=== PATIENT | female | born 1950 | race Two or more races ===

== ENCOUNTER 2019-11-19 12:18 | Inpatient (IN) | payer MEDICARE, OTHER ==
[~2019-11-19] VITALS: Ht 149.9 cm; Wt 64.0 kg
[2019-11-19] MEDS ORDERED: IV NORMAL SALINE 1000 ML BAG IV ONE ×2 (12:30→13:45)
[2019-11-19] MEDS ORDERED: IPRA12.9 INH (12:32)
[2019-11-19] MEDS ORDERED: FLUT1DIS27 INH (12:32)
[2019-11-19] MEDS ORDERED: IBUP-1953 PO (12:32)
[2019-11-19] MEDS ORDERED: MAGN400O6 PO (12:32)
[2019-11-19] MEDS ORDERED: ALBU2.5V13 NEB (12:32)
[2019-11-19] MEDS ORDERED: LEVO75TA7 PO (12:32)
[2019-11-19] MEDS ORDERED: IPRATROPIUM BROMIDE 0.5 MG/2.5 ML NEBU ONE ×2 (12:43→14:26)
[2019-11-19] MEDS ORDERED: ALBUTEROL SULFATE 2.5 MG/3 ML NEBU ONE ×2 (12:43→14:26)
[2019-11-19] MEDS ORDERED: ALBUTEROL SULFATE 2.5 MG/3 ML NEBU NEB ONE (12:45)
[2019-11-19] MEDS ORDERED: IPRATROPIUM BROMIDE 0.5 MG/2.5 ML NEBU NEB ONE (12:45)
[2019-11-19 12:54] LABS: BASOPHILS # (AUTO) 0.1 K/uL (0.0-8.0); BASOPHILS % (AUTO) 0.8 % (0.0-2.0); EOSINOPHILS % (AUTO) 12.5 % (0.0-7.0); HEMATOCRIT 40.3 % (31.2-41.9); HEMOGLOBIN 13.1 g/dL (10.9-14.3); LYMPHOCYTES # (AUTO) 2.1 K/uL (20.0-40.0); LYMPHOCYTES % (AUTO) 24.8 % (20.5-51.5); MEAN CORPUSCULAR HEMOGLOBIN 31.2 uug (24.7-32.8); MEAN CORPUSCULAR HGB CONC 33 g/dL (32.3-35.6); MEAN CORPUSCULAR VOLUME 96.2 fL (75.5-95.3); MONOCYTES # (AUTO) 0.4 K/uL (2.0-10.0); MONOCYTES % (AUTO) 5.4 % (0.0-11.0); NEUTROPHILS # (AUTO) 4.7 K/uL (1.8-8.9); NEUTROPHILS % (AUTO) 56.5 % (38.5-71.5); PLATELET COUNT (AUTO) 312 K/uL (179-408); RED BLOOD CELL COUNT(AUTO) 4.19 MIL/uL (3.63-4.92); WHITE BLOOD COUNT (AUTO) 8.3 K/uL (3.8-11.8)
[2019-11-19 12:56] LABS: CREATININE 0.9 mg/dL (0.6-1.3)
[2019-11-19 13:08] LABS: BILIRUBIN,DIRECT 0.1 mg/dL (0.0-0.2); BILIRUBIN,TOTAL 0.3 mg/dL (0.2-1.0); TOTAL PROTEIN, SERUM 7.7 g/dL (6.4-8.2)
--- NOTE | 2019-11-19 13:26 | NUR ---
Patient ambulated to bathroom with slow steady gait, pending admission, c/o feelings of anxiety intermittently, speaks full sentences comfortably, c/o chronic back pains, MD is aware.
[2019-11-19 13:53] LABS: *BILIRUBIN,URIN NEGATIVE (NEGATIVE); *BLOOD, URINE 1+ (NEGATIVE); *CLARITY,URINE CLEAR (CLEAR); *COLOR,URINE YELLOW (YELLOW); *KETONES,URINE NEGATIVE (NEGATIVE); *UROBILINOGEN,URINE 0.2 E.U./dl (NORMAL); LEUKOCYTE ESTERASE ,URINE 1+ (NEGATIVE); NITRITE, URINE NEGATIVE (NEGATIVE); UGLUCOSE NEGATIVE (NEGATIVE)
[2019-11-19] MEDS ORDERED: ONDANSETRON 4 MG/2 ML VIAL ONE (13:58)
[2019-11-19] MEDS ORDERED: MORPHINE SULFATE 2 MG/1 ML DISP.SYRIN ONE (13:58)
[2019-11-19 13:59] LABS: BACTERIA,URINE FEW /HPF (NONE SEEN); RBC,URINE 0-3 /HPF (0-3); SQUAMOUS EPITHELIAL CELL,UR FEW /HPF (NONE SEEN); WBC,URINE 0-3 /HPF (0-3)
[2019-11-19] MEDS ORDERED: ONDANSETRON 4 MG/2 ML VIAL IV ONE (14:00)
[2019-11-19] MEDS ORDERED: MORPHINE SULFATE 2 MG/1 ML DISP.SYRIN IV ONE (14:00)
[2019-11-19] MEDS ORDERED: PIPERACILLIN/TAZOBACTAM/D5W 50 ML IV ONE (14:14)
[2019-11-19] MEDS ORDERED: methylPREDNISolone SOD SUCC 125 MG/2 ML VIAL IV ONE (14:15)
[2019-11-19] MEDS ORDERED: PIPERACILLIN SODIUM/TAZOBACTAM 3.375 G in IV DEXTROSE 5% 50 ML IV ONE (14:15)
[2019-11-19] MEDS ORDERED: AZITHROMYCIN IV 500 MG in IV DEXTROSE 5% 250 ML IV ONE (14:15)
[2019-11-19] MEDS ORDERED: methylPREDNISolone SOD SUCC 125 MG/2 ML VIAL ONE (14:18)
[2019-11-19 14:23] LABS: ABG BASE EXCESS -2.4 mmol/L; ABG HCO3 22.7 mmol/L; ABG PCO2 39.9 mmHg (35.0-45.0); ABG PH 7.372 (7.350-7.450); ABG PO2 55.8 mmHg (75.0-100.0); ABG SITE RIGHT RADIAL; ABG TOTAL HEMOGLOBIN 12.5 G/dL (12.0-16.0); COHb 0.9 % (0.5-1.5); MetHb 0.1 % (0.0-1.5); O2Hb 87.5 % (94.0-97.0); VENT MODE Room Air
--- NOTE | 2019-11-19 14:23 | NUR ---
ADRIANE Bocanegra is here & evaluating the patient.
[2019-11-19] MEDS: IPRATROPIUM BROMIDE 0.5 MG/2.5 ML NEBU NEB SCH ×3 (14:27→22:31)
[2019-11-19] MEDS: ALBUTEROL SULFATE 2.5 MG/3 ML NEBU NEB SCH ×3 (14:27→22:31)
--- NOTE | 2019-11-19 14:34 | NUR ---
Clinical Pharmacy Note: Vancomycin Dosing per Pharmacy Subjective: Vancomycin IV to start on this 69 yo female patient for suspected infection (waiting for MD notes) Objective: BUN 16/Scr 0.9 WBC 8.3 Temperature 98.9 ht 155 cm wt 61.6 kg Assessment/Plan: Will start vancomycin 1000mg IVPB Q26hr for a predicted vancomycin steady state trough level of 15.8 mcg/ml. Will draw a vancomycin trough level prior to the 4th dose of vancomycin (not ordered yet). Will monitor renal function and adjust vancomycin dose, if needed, should renal function change significantly. Will follow daily.
[2019-11-19] MEDS ORDERED: AZITHROMYCIN 500MG/ D5W 250ML IVPB **ER PYXIS ONLY IV ONE (14:38)
[2019-11-19] MEDS ORDERED: MAGNESIUM HYDROXIDE 30 ML LIQUID UDC PO PRN (14:45)
[2019-11-19] MEDS ORDERED: ACETAMINOPHEN 325 MG TABLET PO PRN (14:45)
[2019-11-19] MEDS ORDERED: ONDANSETRON 4 MG/2 ML VIAL IV PRN (14:45)
[2019-11-19] MEDS ORDERED: Z GUARD REMEDY PASTE 57 GM TUBE TOP PRN (14:45)
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
--- NOTE | 2019-11-19 14:55 | NUR ---
Voided 2 more times while in ER. MAIL ROOM Sahra wants patient admitted to CCU instead of 3rd floor. CCU1 given with IV Zithromax infusing, endorsed to CCU nurse
[2019-11-19] MEDS ORDERED: LORAZEPAM 0.5 MG TABLET PO PRN (15:00)
[2019-11-19 15:06] VITALS: BP 98/62
[2019-11-19] MEDS ORDERED: LORAZEPAM 1 MG TABLET PO PRN (15:30)
[2019-11-19] MEDS: GUAIFENESIN LA 600 MG TABLET.SA PO SCH (15:31)
--- NOTE | 2019-11-19 15:45 | NUR ---
awake. alert. watching t.v. med. with tylenol , ativan, and mucinex for cough. pt. able to swallow water easily without coughing.
[2019-11-19] MEDS ORDERED: VANCOMYCIN IV 1,000 MG in IV DEXTROSE 5% 250 ML IV SCH (16:00)
[2019-11-19 17:00] VITALS: BP 123/76
--- NOTE | 2019-11-19 17:19 | NUR ---
pt. eating supper. denies pain or dyspnea.
--- NOTE | 2019-11-19 17:30 | NUR ---
incontinent of urine. pads changed.
[2019-11-19] MEDS: IV NS 1000 ML 1,000 ML IV PRN (19:00)
[2019-11-19 19:01] VITALS: BP 146/87
[2019-11-19] MEDS: HYDROCODONE/APAP 5-325MG TABLET PO PRN ×2 (19:07→22:56)
[2019-11-19 20:00] VITALS: BP 115/80
[2019-11-19] MEDS: PIPERACILLIN SODIUM/TAZOBACTAM 3.375 G in IV DEXTROSE 5% 50 ML IV SCH (20:15)
[2019-11-19] MEDS: CLONAZEPAM 1 MG TABLET PO PRN (20:17)
[2019-11-19] MEDS: GUAIFENESIN/CODEINE 5 ML LIQUID UDC PO PRN (20:41)
[2019-11-19 22:00] VITALS: BP 113/64
[2019-11-19] MEDS: methylPREDNISolone SOD SUCC 40 MG/ML VIAL IV SCH (22:39)
[2019-11-20] VITALS (12 sets, daily range): BP systolic 106–144; BP diastolic 58–84
[2019-11-20] MEDS: PIPERACILLIN SODIUM/TAZOBACTAM 3.375 G in IV DEXTROSE 5% 50 ML IV SCH ×2 (02:21→08:23)
[2019-11-20] MEDS: GUAIFENESIN/CODEINE 5 ML LIQUID UDC PO PRN ×4 (02:30→19:34)
[2019-11-20] MEDS: HYDROCODONE/APAP 5-325MG TABLET PO PRN ×5 (03:05→21:28)
[2019-11-20] MEDS: IV NS 1000 ML 1,000 ML IV PRN ×2 (04:38→21:29)
[2019-11-20 05:19] LABS: BASOPHILS % (AUTO) 0.1 % (0.0-2.0); HEMATOCRIT 36.3 % (31.2-41.9); HEMOGLOBIN 11.9 g/dL (10.9-14.3); LYMPHOCYTES # (AUTO) 0.7 K/uL (20.0-40.0); LYMPHOCYTES % (AUTO) 9.2 % (20.5-51.5); MEAN CORPUSCULAR HEMOGLOBIN 31.2 uug (24.7-32.8); MEAN CORPUSCULAR HGB CONC 33 g/dL (32.3-35.6); MEAN CORPUSCULAR VOLUME 94.9 fL (75.5-95.3); MONOCYTES # (AUTO) 0.1 K/uL (2.0-10.0); MONOCYTES % (AUTO) 0.7 % (0.0-11.0); NEUTROPHILS # (AUTO) 6.9 K/uL (1.8-8.9); PLATELET COUNT (AUTO) 280 K/uL (179-408); RED BLOOD CELL COUNT(AUTO) 3.82 MIL/uL (3.63-4.92); WHITE BLOOD COUNT (AUTO) 7.7 K/uL (3.8-11.8)
[2019-11-20 05:24] LABS: CREATININE 0.9 mg/dL (0.6-1.3); MAGNESIUM 1.9 mg/dL (1.8-2.4); PHOSPHOROUS 3.8 mg/dL (2.5-4.9); POTASSIUM 4.4 mmol/L (3.5-5.1)
[2019-11-20] MEDS: ALBUTEROL SULFATE 2.5 MG/3 ML NEBU NEB SCH ×6 (05:32→22:30)
[2019-11-20] MEDS: IPRATROPIUM BROMIDE 0.5 MG/2.5 ML NEBU NEB SCH ×6 (05:32→22:30)
[2019-11-20] MEDS: methylPREDNISolone SOD SUCC 40 MG/ML VIAL IV SCH ×2 (06:15→21:28)
[2019-11-20] MEDS: LEVOTHYROXINE SODIUM 75 MCG TABLET PO SCH (06:15)
--- NOTE | 2019-11-20 08:02 | NUR ---
Clinical Pharmacy Note: Vancomycin Dosing per Pharmacy Subjective: Vancomycin IV to continue on this 69 yo female patient for suspected infection (per ER MD note for [facility]) Objective: BUN 12/Scr 0.9 WBC 7.7 Temperature 97.7 ht 155 cm wt 61.6 kg Assessment/Plan: Will continue same dose of vancomycin 1000mg IVPB Q26hr for a predicted vancomycin steady state trough level of 15.8 mcg/ml. 2nd dose today at 1800. Will draw a vancomycin trough level prior to the 4th dose of vancomycin (not ordered yet). Will monitor renal function and adjust vancomycin dose, if needed, should renal function change significantly. Will follow daily.
[2019-11-20] MEDS: CLONAZEPAM 1 MG TABLET PO PRN ×2 (08:22→19:34)
[2019-11-20] MEDS: GUAIFENESIN LA 600 MG TABLET.SA PO SCH ×2 (08:22→21:28)
--- NOTE | 2019-11-20 13:30 | NUR ---
Attending physician NYareliP. in the unit to examine patient, full report give orders to down grade pt. to Med-surge received and implemented.
[2019-11-20] MEDS ORDERED: LEVOFLOXACIN 500 MG TABLET PO ONE (14:00)
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
--- NOTE | 2019-11-20 15:08 | NUR ---
Telephone report given Ileana Guaman patient will be going to room 310. Patient will be going via wheel-chair.
--- NOTE | 2019-11-20 16:00 | NUR ---
PT is in no acute distress. Pt ambulatory. IV reinforced with tape. SNR on tele no ectopy. Call light is within reach.
--- NOTE | 2019-11-20 17:30 | NUR ---
PT refused to have IVF restarted. "please start iv later. I wanna move around."
[2019-11-20] MEDS ORDERED: OSMOLITE 1.2 CAL 1,000 ML LIQUID GT PRN (18:00)
--- NOTE | 2019-11-20 20:00 | NUR ---
Patient received awake, alert and fully oriented. Noted with coughing, patient also slightly anxious r/t coughing. RT notified, patient with routine breathing tx. also given PRN cough medication and Klonopin, awaiting effectiveness. No complaints of pain at this time. Fall and safety precautions reinforced. On O2 2LPM via NC. Relaxation techniques reinforced. Will continue to monitor and manage symptoms as needed.
--- NOTE | 2019-11-20 22:00 | NUR ---
Pt is now resting comfortably. [place] 5 x 1 given at around 2130 for 10/10 complaints of pain. No more coughing noted and no more signs of anxiety. Will continue to monitor.
[2019-11-21] MEDS: HYDROCODONE/APAP 5-325MG TABLET PO PRN ×4 (02:03→20:17)
[2019-11-21] MEDS: ALBUTEROL SULFATE 2.5 MG/3 ML NEBU NEB SCH ×6 (03:30→23:55)
[2019-11-21] MEDS: IPRATROPIUM BROMIDE 0.5 MG/2.5 ML NEBU NEB SCH ×6 (03:30→23:55)
--- NOTE | 2019-11-21 05:46 | NUR ---
Patient is resting at this time, another 1x dose of [place] given around 1am. Able to sleep without coughing and any respiratory distress. Proper skin care provided. All needs attended, will continue to monitor and endorse accordingly.
[2019-11-21] MEDS: CLONAZEPAM 1 MG TABLET PO PRN ×2 (05:51→18:57)
[2019-11-21] MEDS: LEVOTHYROXINE SODIUM 75 MCG TABLET PO SCH (05:54)
[2019-11-21 06:40] LABS: BASOPHILS % (AUTO) 0.1 % (0.0-2.0); HEMATOCRIT 36.5 % (31.2-41.9); HEMOGLOBIN 11.7 g/dL (10.9-14.3); LYMPHOCYTES % (AUTO) 6.9 % (20.5-51.5); MEAN CORPUSCULAR HEMOGLOBIN 30.9 uug (24.7-32.8); MEAN CORPUSCULAR HGB CONC 32 g/dL (32.3-35.6); MEAN CORPUSCULAR VOLUME 96.7 fL (75.5-95.3); MONOCYTES # (AUTO) 0.4 K/uL (2.0-10.0); MONOCYTES % (AUTO) 2.5 % (0.0-11.0); NEUTROPHILS # (AUTO) 13.6 K/uL (1.8-8.9); NEUTROPHILS % (AUTO) 90.5 % (38.5-71.5); PLATELET COUNT (AUTO) 259 K/uL (179-408); RED BLOOD CELL COUNT(AUTO) 3.78 MIL/uL (3.63-4.92)
[2019-11-21 07:10] LABS: CREATININE 0.8 mg/dL (0.6-1.3); MAGNESIUM 2.1 mg/dL (1.8-2.4); PHOSPHOROUS 3.5 mg/dL (2.5-4.9); POTASSIUM 4.4 mmol/L (3.5-5.1)
--- NOTE | 2019-11-21 08:00 | NUR ---
Pt. resting in bed alert oriented x4. Pt. denies SOB/ difficulty breathing. Pt. denies pain at this time. IV in L hand 20 gauge intact patent running prescribed fluids. Safety measures in place. call light within reach. will continue to monitor pt.
[2019-11-21] MEDS: GUAIFENESIN/CODEINE 5 ML LIQUID UDC PO PRN ×3 (08:15→20:50)
[2019-11-21] MEDS: GUAIFENESIN LA 600 MG TABLET.SA PO SCH ×2 (08:15→20:17)
[2019-11-21] MEDS: IV NS 1000 ML 1,000 ML IV PRN (08:15)
[2019-11-21] MEDS: methylPREDNISolone SOD SUCC 40 MG/ML VIAL IV SCH ×2 (08:15→20:16)
[2019-11-21 11:00] VITALS: BP 132/71
[2019-11-21] MEDS ORDERED: ALBUTEROL SULFATE 1.25 MG/3 ML NEBU NEB PRN (11:15)
[2019-11-21] MEDS ORDERED: IPRATROPIUM BROMIDE 0.5 MG/2.5 ML NEBU NEB PRN (11:15)
[2019-11-21] MEDS: LEVOFLOXACIN 250 MG TABLET PO SCH (15:33)
--- NOTE | 2019-11-21 15:56 | NUR ---
Provided pt. with AM Robitussin, and milk of magnesia. Provided pt. with Robitussin again for cough and norco for generalized pain. pt. has not had BM after MOM will provide pt. with prune juice to see if that will help. Safety measures in place. call light within reach. will continue to monitor pt.
[2019-11-21 16:00] VITALS: BP 128/72
--- NOTE | 2019-11-21 16:59 | NUR ---
Diet armida notified to collect pt food preferences. Addendum: 11/21/19 at [address] Amended: Links added.
--- NOTE | 2019-11-21 20:00 | NUR ---
AWAKE ,ALERT.COMPLAINING OF GENERALIZED PAIN,NORCO I TAB PO GIVEN/COUGHING CONTINUOUSLY MUCINEX PLUS ROBITUSSIN GIVE.RESPIRATORY THERAPY GAVE TX. PT ASLEEP FOR 4 HOURS. O2 AT 2 LITERS,RESTING COMFORTABLY.
[2019-11-21 20:44] VITALS: BP 124/73
--- NOTE | 2019-11-22 00:30 | NUR ---
NORCO GIVEN REQUESTED FOR GENERALIZED PAIN,REFUSED RESPIRATORY TX.ROBITUSSIN GIVEN.SLEPT FOR 4 HOURS.
[2019-11-22] MEDS: GUAIFENESIN/CODEINE 5 ML LIQUID UDC PO PRN ×2 (00:43→20:20)
[2019-11-22] MEDS: HYDROCODONE/APAP 5-325MG TABLET PO PRN ×5 (00:43→18:28)
[2019-11-22] MEDS: ALBUTEROL SULFATE 2.5 MG/3 ML NEBU NEB SCH ×6 (05:07→23:19)
[2019-11-22] MEDS: IPRATROPIUM BROMIDE 0.5 MG/2.5 ML NEBU NEB SCH ×6 (05:07→23:19)
--- NOTE | 2019-11-22 06:05 | NUR ---
MEDICATED AGAIN FOR GENERALIZED PAIN, NORCO 1 TAB GIVEN WITH ROBITUSSIN, VERY HAPPY NOT COUHING CONTINOUSLY.BREATHING TX GIVEN.
[2019-11-22 06:24] VITALS: BP 127/64
[2019-11-22 06:45] LABS: HEMOGLOBIN 12.2 g/dL (10.9-14.3); LYMPHOCYTES # (AUTO) 1.7 K/uL (20.0-40.0); LYMPHOCYTES % (AUTO) 16.5 % (20.5-51.5); MEAN CORPUSCULAR HEMOGLOBIN 30.9 uug (24.7-32.8); MEAN CORPUSCULAR HGB CONC 32 g/dL (32.3-35.6); MEAN CORPUSCULAR VOLUME 96.2 fL (75.5-95.3); MONOCYTES # (AUTO) 0.3 K/uL (2.0-10.0); MONOCYTES % (AUTO) 3.3 % (0.0-11.0); NEUTROPHILS # (AUTO) 8.2 K/uL (1.8-8.9); NEUTROPHILS % (AUTO) 80.2 % (38.5-71.5); PLATELET COUNT (AUTO) 262 K/uL (179-408); RED BLOOD CELL COUNT(AUTO) 3.95 MIL/uL (3.63-4.92); WHITE BLOOD COUNT (AUTO) 10.2 K/uL (3.8-11.8)
[2019-11-22] MEDS: LEVOTHYROXINE SODIUM 75 MCG TABLET PO SCH (07:04)
[2019-11-22 07:11] LABS: CREATININE 0.8 mg/dL (0.6-1.3); MAGNESIUM 2.2 mg/dL (1.8-2.4); PHOSPHOROUS 3.3 mg/dL (2.5-4.9); POTASSIUM 4.1 mmol/L (3.5-5.1)
--- NOTE | 2019-11-22 07:30 | NUR ---
Patient calm and comfortable with no signs of distress and stable vital signs; patient will continue to be monitored.
[2019-11-22] MEDS: methylPREDNISolone SOD SUCC 40 MG/ML VIAL IV SCH ×2 (08:57→20:13)
[2019-11-22] MEDS: CLONAZEPAM 1 MG TABLET PO PRN ×2 (08:57→20:13)
[2019-11-22] MEDS: GUAIFENESIN LA 600 MG TABLET.SA PO SCH ×2 (08:57→20:13)
--- NOTE | 2019-11-22 10:00 | NUR ---
dr wisdom saw pt, ordered effector. given
[2019-11-22 11:35] VITALS: BP 129/70
[2019-11-22] MEDS: LEVOFLOXACIN 250 MG TABLET PO SCH (14:11)
[2019-11-22 16:00] VITALS: BP 132/81
--- NOTE | 2019-11-22 19:20 | NUR ---
Patient medication compliant; patient educated that if she feels weak to use call light for assistance ; patient verbalized understanding. patient with stable vital signs through out shift. Patient given Prn pain and anxiety medication through out shift. Report given to on coming nurse.
--- NOTE | 2019-11-22 20:00 | NUR ---
ALERT,WAITING FOR KLONOPIN FOR HER ANXIETY,NORCO I TAB GIVEN FOR GENERALIZED PAIN, HHN GIVEN BY RESPIRATORY THERAPY,COUGHING CONTINUOSLY, ROBITUSSIN 5 CC GIVEN.
[2019-11-22 20:43] VITALS: BP 104/83
[2019-11-22] MEDS ORDERED: VENLAFAXINE XR 37.5 MG CAP.SR.24H PO SCH (21:30)
[2019-11-22] MEDS: VENLAFAXINE XR 37.5 MG CAP.SR.24H PO SCH (22:00)
[2019-11-22] MEDS ORDERED: VENLAFAXINE XR 37.5 MG CAP.SR.24H ONE (22:31)
[2019-11-23] MEDS: HYDROCODONE/APAP 5-325MG TABLET PO PRN ×3 (03:44→12:06)
[2019-11-23] MEDS: ALBUTEROL SULFATE 2.5 MG/3 ML NEBU NEB SCH ×4 (03:52→15:32)
[2019-11-23] MEDS: IPRATROPIUM BROMIDE 0.5 MG/2.5 ML NEBU NEB SCH ×4 (03:52→15:32)
[2019-11-23 05:19] VITALS: BP 122/70
[2019-11-23] MEDS: LEVOTHYROXINE SODIUM 75 MCG TABLET PO SCH (06:12)
[2019-11-23 06:19] LABS: HEMATOCRIT 36.3 % (31.2-41.9); LYMPHOCYTES # (AUTO) 1.4 K/uL (20.0-40.0); LYMPHOCYTES % (AUTO) 14.2 % (20.5-51.5); MEAN CORPUSCULAR HEMOGLOBIN 31.1 uug (24.7-32.8); MEAN CORPUSCULAR HGB CONC 33 g/dL (32.3-35.6); MONOCYTES # (AUTO) 0.5 K/uL (2.0-10.0); MONOCYTES % (AUTO) 4.8 % (0.0-11.0); PLATELET COUNT (AUTO) 267 K/uL (179-408); RED BLOOD CELL COUNT(AUTO) 3.86 MIL/uL (3.63-4.92); WHITE BLOOD COUNT (AUTO) 9.9 K/uL (3.8-11.8)
[2019-11-23 06:40] LABS: CREATININE 0.7 mg/dL (0.6-1.3); MAGNESIUM 2.2 mg/dL (1.8-2.4)
--- NOTE | 2019-11-23 07:30 | NUR ---
Patient calm and comfortable resting in bed with no signs of distress; patient will continue to be monitored.
[2019-11-23] MEDS: GUAIFENESIN LA 600 MG TABLET.SA PO SCH (08:42)
[2019-11-23] MEDS: VENLAFAXINE XR 37.5 MG CAP.SR.24H PO SCH (08:42)
[2019-11-23] MEDS: methylPREDNISolone SOD SUCC 40 MG/ML VIAL IV SCH (08:43)
[2019-11-23] MEDS ORDERED: MORPHINE SULFATE 4 MG/1 ML DISP.SYRIN ONE (09:42)
[2019-11-23] MEDS ORDERED: ONDANSETRON 4 MG/2 ML VIAL ONE (09:43)
[2019-11-23] MEDS: CLONAZEPAM 1 MG TABLET PO PRN (10:09)
[2019-11-23 11:06] VITALS: BP 129/78
[2019-11-23] MEDS ORDERED: LEVOFLOXACIN 500 MG TABLET PO SCH (14:00)
--- NOTE | 2019-11-23 14:50 | NUR ---
Patient discharged to ARU for rehabilitation services with stable vital signs; patient with no signs of distress; patient medication compliant ; patient educated on ARU transfer ; patient verbalized understanding; patient given discharge instructions; report given to aru nurse. Patient left in stable condition.
[2019-11-23] MEDS ORDERED: VENL37.55 PO (16:23)
[2019-11-23] MEDS ORDERED: CLON1TAB PO (16:23)
== END 2019-11-23 14:50 | DRG 189 ==
LOC: ER 12:20 → CCU 14:40 → MEDSURG3 11-20 15:51
PROVIDERS: ADMIT Nurse Practitioner Acute Care; ATTEND Nurse Practitioner Acute Care
DX: J96.01 Acute respiratory failure with hypoxia (principal); J45.901 Unspecified asthma with (acute) exacerbation; J20.9 Acute bronchitis, unspecified; E03.9 Hypothyroidism, unspecified; Z91.5 Personal history of self-harm; G89.29 Other chronic pain; M54.9 Dorsalgia, unspecified; F32.9 Major depressive disorder, single episode, unspecified; Z79.890 Hormone replacement therapy; F41.1 Generalized anxiety disorder
CPT/HCPCS: 36415; 36600; 70030-TC; 71045; 83605; 83735; 84100; 85025; 87040; 87070; 87086; 87400; 93005; 94640; A4663; G0378; J0456; J2270; J2405; J2543; J2920; J2930; J3370; J3590; J7030; J7060

== ENCOUNTER 2019-11-23 15:37 | Inpatient (IN) | payer MEDICARE, OTHER ==
[~2019-11-23] VITALS: Ht 149.9 cm; Wt 64.0 kg
[~2019-11-23 15:37] MED LIST: ALBU2.5V13 NEB; FLUT1DIS27 INH; IBUP-1953 PO; IPRA12.9 INH; LEVO75TA7 PO; MAGN400O6 PO
[2019-11-23] MEDS ORDERED: CLON1TAB PO (16:23)
[2019-11-23] MEDS ORDERED: VENL37.55 PO (16:23)
[2019-11-23 16:33] VITALS: BP 142/76
[2019-11-23] MEDS: HYDROCODONE/APAP 10-325 MG TABLET PO PRN ×2 (16:41→20:49)
[2019-11-23] MEDS ORDERED: ALBUTEROL SULFATE 2.5 MG/ 0.5 ML NEBU NEB PRN (17:00)
[2019-11-23] MEDS ORDERED: IPRATROPIUM BROMIDE 0.5 MG/2.5 ML NEBU NEB PRN (17:00)
[2019-11-23] MEDS ORDERED: GUAIFENESIN/CODEINE 5 ML LIQUID UDC PO PRN (17:00)
[2019-11-23] MEDS: VENLAFAXINE XR 37.5 MG CAP.SR.24H PO SCH (17:53)
--- NOTE | 2019-11-23 18:28 | NUR ---
Admitted a 69 year old female patient from [facility] at 14:45pm. patient is AAO x 4, able to express need. Patient on O2 at 2LPM via NC O2 saturation of 95%. In NO acute distress. Patient also on routine breathing treatment. Patient noted with dry cough at times. Vital signs taken and stable for patient. Afebrile. Dr. Mora made aware of patient admission. Jennifer Bocanegra GUARD IMMIGRATION verified medications. Patient on [place] 10/325mg PO 1 tab Q 4hrs prn for Generalized pain and effective. Due medication administered as ordered. Inventory done during shift. Patient ambulatory with a walker and one person assist. Needs attended, safety measures in place, call light left at bed side, endorsed to next shift and will continue with care.
[2019-11-23] MEDS: GUAIFENESIN LA 600 MG TABLET.SA PO SCH (20:08)
[2019-11-23] MEDS: methylPREDNISolone SOD SUCC 40 MG/ML VIAL IV SCH (20:09)
[2019-11-23] MEDS: CLONAZEPAM 1 MG TABLET PO PRN (20:09)
--- NOTE | 2019-11-23 21:46 | NUR ---
Received pt resting in bed. AAO x4. On 2L O2 via NC, tolerating well. No acute distress noted. C/o 8/10 pain on the back, PRN pain med given. Due meds given as ordered. Pt received breathing treatment. Noted to have non- productive cough. Pt denies suicidal thoughts. Environmental room safety check and q15 minutes check implemented. Safety measures maintained. Call light and personal items within reach. Will continue to monitor.
[2019-11-23 22:20] VITALS: BP 139/71
[2019-11-23] MEDS: IPRATROPIUM BROMIDE 0.5 MG/2.5 ML NEBU NEB SCH ×2 (22:37→23:30)
[2019-11-23] MEDS: ALBUTEROL SULFATE 2.5 MG/ 0.5 ML NEBU NEB SCH ×2 (22:38→23:30)
[2019-11-24] MEDS: HYDROCODONE/APAP 10-325 MG TABLET PO PRN ×4 (00:49→20:22)
[2019-11-24] MEDS: ALBUTEROL SULFATE 2.5 MG/ 0.5 ML NEBU NEB SCH ×6 (03:30→22:53)
[2019-11-24] MEDS: IPRATROPIUM BROMIDE 0.5 MG/2.5 ML NEBU NEB SCH ×6 (03:30→22:53)
[2019-11-24 04:20] VITALS: BP 130/81
[2019-11-24] MEDS: LEVOTHYROXINE SODIUM 75 MCG TABLET PO SCH (06:08)
[2019-11-24 08:00] VITALS: BP 146/86
[2019-11-24] MEDS: ASPIRIN 81 MG TAB.CHEW PO SCH (08:39)
[2019-11-24] MEDS: GUAIFENESIN LA 600 MG TABLET.SA PO SCH ×2 (08:39→20:15)
[2019-11-24] MEDS: VENLAFAXINE XR 37.5 MG CAP.SR.24H PO SCH ×2 (08:39→17:40)
[2019-11-24] MEDS: methylPREDNISolone SOD SUCC 40 MG/ML VIAL IV SCH ×2 (08:39→20:15)
[2019-11-24] MEDS ORDERED: VENLAFAXINE XR 37.5 MG CAP.SR.24H PO SCH (09:00)
[2019-11-24] MEDS: CLONAZEPAM 1 MG TABLET PO PRN ×2 (11:12→22:53)
[2019-11-24 15:26] VITALS: BP 125/80
--- NOTE | 2019-11-24 19:35 | NUR ---
Sleeping during initial rounds. Continuos O2 at 2L/min via NC, tolerated well, saturating 93%. Safety measures and fall precaution maintained. Continue care as planned.
[2019-11-24 20:18] VITALS: BP 145/75
[2019-11-25] MEDS: ALBUTEROL SULFATE 2.5 MG/ 0.5 ML NEBU NEB SCH ×6 (03:04→22:30)
[2019-11-25] MEDS: IPRATROPIUM BROMIDE 0.5 MG/2.5 ML NEBU NEB SCH ×6 (03:04→22:30)
[2019-11-25] MEDS: HYDROCODONE/APAP 10-325 MG TABLET PO PRN ×4 (04:41→19:45)
[2019-11-25 05:30] VITALS: BP 136/81
--- NOTE | 2019-11-25 05:50 | NUR ---
Shift End Report: Vs stable. Slept good. Medicated twice for generalized pain and anti-anxiety medications with help. No further complaint presented. All needs attended and met. No significant event reported all night. Continue current rehab plan of care.
[2019-11-25] MEDS: LEVOTHYROXINE SODIUM 75 MCG TABLET PO SCH (06:10)
[2019-11-25 07:58] VITALS: BP 138/84
[2019-11-25] MEDS: ASPIRIN 81 MG TAB.CHEW PO SCH (08:51)
[2019-11-25] MEDS: methylPREDNISolone SOD SUCC 40 MG/ML VIAL IV SCH ×2 (08:52→20:49)
[2019-11-25] MEDS: GUAIFENESIN LA 600 MG TABLET.SA PO SCH ×2 (08:52→20:50)
[2019-11-25] MEDS: VENLAFAXINE XR 37.5 MG CAP.SR.24H PO SCH ×2 (08:54→17:06)
--- NOTE | 2019-11-25 15:02 | NUR ---
Received patient alert and oriented x3-4. Complaint of generalize pain scale 7/10 . [place] 10-325mg given with good effect. Continue participates in therapy for ADL abilities. tolerated well. not in distress. will continue monitor
[2019-11-25] MEDS: CLONAZEPAM 1 MG TABLET PO PRN (15:34)
[2019-11-25 16:08] VITALS: BP 151/93
--- NOTE | 2019-11-25 19:30 | NUR ---
Awake in bed, watching TV at this time, generalized tolerable pain presented. Not in distress. Continuos O2 at 2L via NC saturating 93% at this time. Safety measure and fall precaution maintained. Continue plan of care.
--- NOTE | 2019-11-25 19:45 | NUR ---
Complaining of generalized pain, [place] 1 tab oral given as needed and ordered. Will monitor.
[2019-11-25 20:00] VITALS: BP 129/78
[2019-11-26] MEDS: HYDROCODONE/APAP 10-325 MG TABLET PO PRN ×4 (01:43→20:48)
[2019-11-26] MEDS: ALBUTEROL SULFATE 2.5 MG/ 0.5 ML NEBU NEB SCH ×6 (02:30→22:38)
[2019-11-26] MEDS: IPRATROPIUM BROMIDE 0.5 MG/2.5 ML NEBU NEB SCH ×6 (02:30→22:38)
[2019-11-26] MEDS: CLONAZEPAM 1 MG TABLET PO PRN ×3 (05:11→23:18)
[2019-11-26 05:40] VITALS: BP 135/70
[2019-11-26] MEDS: LEVOTHYROXINE SODIUM 75 MCG TABLET PO SCH (06:22)
--- NOTE | 2019-11-26 07:04 | NUR ---
Shift End Report: Vs stable. Slept well. Medicated twice for generalized pain and once for anxiety with good effect. No further complaint presented. All needs attended and met. No significant event reported all night. Continue current rehab plan of care.
[2019-11-26 07:43] VITALS: BP 126/79
[2019-11-26] MEDS: ASPIRIN 81 MG TAB.CHEW PO SCH (08:37)
[2019-11-26] MEDS: GUAIFENESIN LA 600 MG TABLET.SA PO SCH ×2 (08:37→20:48)
[2019-11-26] MEDS: VENLAFAXINE XR 37.5 MG CAP.SR.24H PO SCH ×2 (08:38→16:20)
[2019-11-26] MEDS: methylPREDNISolone SOD SUCC 40 MG/ML VIAL IV SCH ×2 (08:38→20:48)
--- NOTE | 2019-11-26 11:04 | NUR ---
INDIVIDUALIZE OVERALL PLAN OF CARE
[2019-11-26 14:41] VITALS: BP 142/75
--- NOTE | 2019-11-26 18:56 | NUR ---
no changes noted during shift, no acute distress noted, pain is managed with pain meds and with nonpharmacological interventions
--- NOTE | 2019-11-26 19:35 | NUR ---
Sleeping comfortably during initial rounds. No s/s of respiratory distress with continuos O2 at 2L via NC saturating 96% at this time. HOB elevated. safety measure and fall precaution maintained. Continue care as planned
[2019-11-26 20:22] VITALS: BP 125/62
--- NOTE | 2019-11-26 20:48 | NUR ---
Medicated for generalized pain. Will monitor.
[2019-11-27] MEDS: ALBUTEROL SULFATE 2.5 MG/ 0.5 ML NEBU NEB SCH ×6 (03:08→22:31)
[2019-11-27] MEDS: IPRATROPIUM BROMIDE 0.5 MG/2.5 ML NEBU NEB SCH ×6 (03:08→22:30)
[2019-11-27] MEDS: HYDROCODONE/APAP 10-325 MG TABLET PO PRN ×4 (04:15→19:59)
--- NOTE | 2019-11-27 06:00 | NUR ---
Shift End Report: Vs stable. Slept well. Medicated twice for generalized pain and once for anxiety with good effect. No further complaint presented. No BM x 1 week, prune juice given with no result/effect. will endorse. All needs attended and met. No significant event reported all night. Continue current rehab plan of care.
[2019-11-27 06:12] VITALS: BP 126/85
[2019-11-27] MEDS: LEVOTHYROXINE SODIUM 75 MCG TABLET PO SCH (06:16)
--- NOTE | 2019-11-27 06:39 | NUR ---
While making rounds, saw patient trying to open a brown container and when asked, she said "its my medication to make me poop.( TWNLAB MAGNESIUM CAPS. Took bottle away from the patient and told her that we will keep it till she'll go home. Labeled with patient name and will endorse.
[2019-11-27 07:38] VITALS: BP 133/85
[2019-11-27] MEDS: ASPIRIN 81 MG TAB.CHEW PO SCH (08:40)
[2019-11-27] MEDS: methylPREDNISolone SOD SUCC 40 MG/ML VIAL IV SCH ×2 (08:42→21:12)
[2019-11-27] MEDS: GUAIFENESIN LA 600 MG TABLET.SA PO SCH ×2 (08:42→21:12)
[2019-11-27] MEDS: VENLAFAXINE XR 37.5 MG CAP.SR.24H PO SCH ×2 (08:42→17:35)
--- NOTE | 2019-11-27 08:59 | NUR ---
Patient awake, alert, oriented x 3, not in any form of distress, on room air. She denies any pain or discomfort at this time. Due medications administered and tolerated well. Assisted with her needs. Call light and frequently used items placed within reach.
[2019-11-27] MEDS: CLONAZEPAM 1 MG TABLET PO PRN (13:34)
[2019-11-27 15:48] VITALS: BP 147/88
[2019-11-27 20:18] VITALS: BP 118/72
--- NOTE | 2019-11-27 23:00 | NUR ---
Hand off report given to nurse Melinda
--- NOTE | 2019-11-27 23:47 | NUR ---
REPORT RECEIVED FROM KARL TOLEDO. PATIENTS RECEIVED ASLEEP. NO DISTRESS NOTED. WILL CONTINUE TO MONITOR.
[2019-11-28] MEDS: CLONAZEPAM 1 MG TABLET PO PRN ×2 (00:49→14:05)
[2019-11-28] MEDS: ALBUTEROL SULFATE 2.5 MG/ 0.5 ML NEBU NEB SCH ×6 (02:31→22:59)
[2019-11-28] MEDS: IPRATROPIUM BROMIDE 0.5 MG/2.5 ML NEBU NEB SCH ×6 (02:31→22:59)
[2019-11-28] MEDS: HYDROCODONE/APAP 10-325 MG TABLET PO PRN ×4 (03:55→22:37)
[2019-11-28 05:51] VITALS: BP 122/64
[2019-11-28] MEDS: LEVOTHYROXINE SODIUM 75 MCG TABLET PO SCH (06:16)
[2019-11-28 08:00] VITALS: BP 141/92
[2019-11-28] MEDS: methylPREDNISolone SOD SUCC 40 MG/ML VIAL IV SCH ×2 (08:40→20:24)
[2019-11-28] MEDS: ASPIRIN 81 MG TAB.CHEW PO SCH (08:40)
[2019-11-28] MEDS: GUAIFENESIN LA 600 MG TABLET.SA PO SCH ×2 (08:40→20:24)
[2019-11-28] MEDS: VENLAFAXINE XR 37.5 MG CAP.SR.24H PO SCH ×2 (08:40→16:49)
--- NOTE | 2019-11-28 12:39 | NUR ---
PATIENT FOUND LYING IN THE FLOOR IN THE BATHROOM AROUND 1235PM. PATIENT INTERVIEWED AND VERBALIZE THAT SHE WENT TO THE BATHROOM BY HERSELF WITHOUT ASKING FOR HELP. PATIENT FEELS DIZZY-BP 130/70. PATIENT REORIENT AND ENCOURAGE TO CALL LIGHT WHEN NEEDED FOR ASSISTANCE. NO CHANGE IN LOC, ROM AND NO VISIBLE INJURY NOTED. COMPLAINT OF SLIGHT PAIN ON RIGHT SIDE ARM AND HEAD. WILL APPLY ICE PACK. MD RIZVI MADE AWARE. NOT IN DISTRESS. WILL CONTINUE MONITOR
[2019-11-28] MEDS: ONDANSETRON HCL 4 MG TABLET PO PRN (12:52)
--- NOTE | 2019-11-28 13:02 | NUR ---
INTERDISCIPLINARY TEAM CONFERENCE
--- NOTE | 2019-11-28 13:25 | NUR ---
DURING ROUNDS, PATIENT NO COMPLAINT OF HEAD, ONLY RIGHT ARM SLIGHT PAIN. CONTINUE ON PAIN MANAGEMENT AND ICE PACK ON AFFECTED AREA. WILL CONTINUE MONITOR
--- NOTE | 2019-11-28 15:14 | NUR ---
Social Work Note: bone worker met with patient to assess her level of depression. Patient shared that she has developed anxiety since the age of 18 and has been on anxiety medication and anti-depressants for many years. bone worker offered patient counseling services covered through medicare and patient accepted. bone worker gave patient a list of medicare accepting therapist in her area. Patient shared that she has seen a lot of improvement regarding her depression since she has been on the medications and states her level of depression is very minimal. bone worker assessed for suicidal ideation, but none were reported. Patient denies SI.
[2019-11-28 16:00] VITALS: BP 111/66
[2019-11-28] MEDS: BISACODYL 5 MG TABLET.DR PO PRN (19:25)
--- NOTE | 2019-11-28 19:30 | NUR ---
PATIENT ALERT ORIENTED, NO SOB NO CHEST PAIN, ON OXYGEN 2LPM SAT 98%. PATIENT STILL COMPLAIN OF GEN BODY PAIN, CONT ON PAIN MANAGEMENT, CONT TO MONITOR.
[2019-11-28 21:22] VITALS: BP 113/59
[2019-11-28 21:33] VITALS: BP 117/75
[2019-11-29] MEDS: ALBUTEROL SULFATE 2.5 MG/ 0.5 ML NEBU NEB SCH ×6 (03:30→22:33)
[2019-11-29] MEDS: IPRATROPIUM BROMIDE 0.5 MG/2.5 ML NEBU NEB SCH ×6 (03:30→22:33)
[2019-11-29] MEDS: HYDROCODONE/APAP 10-325 MG TABLET PO PRN ×3 (03:54→17:41)
--- NOTE | 2019-11-29 04:27 | NUR ---
PATIENT ALERT ORIENTED, PATIENT REFUSE BREATHING TREATMENT, CONT PAIN MANAGEMENT. CALL LIGHT WITHIN REACH. CONT TO MONITOR.
[2019-11-29 05:54] VITALS: BP 122/76
[2019-11-29] MEDS: LEVOTHYROXINE SODIUM 75 MCG TABLET PO SCH (06:04)
[2019-11-29 08:00] VITALS: BP 142/88
[2019-11-29] MEDS: VENLAFAXINE XR 37.5 MG CAP.SR.24H PO SCH ×2 (09:01→17:41)
[2019-11-29] MEDS: ASPIRIN 81 MG TAB.CHEW PO SCH (09:01)
[2019-11-29] MEDS: GUAIFENESIN LA 600 MG TABLET.SA PO SCH ×2 (09:01→21:56)
[2019-11-29] MEDS: BISACODYL 5 MG TABLET.DR PO PRN (09:01)
[2019-11-29] MEDS: CLONAZEPAM 1 MG TABLET PO PRN ×2 (09:04→16:00)
[2019-11-29] MEDS: methylPREDNISolone SOD SUCC 40 MG/ML VIAL IV SCH ×2 (09:04→21:56)
--- NOTE | 2019-11-29 09:22 | NUR ---
Patient noted resting in bed with eyes closed, awaken easily with speech, no complaints of pain, no signs of distress noted, requested PRN for anxiety, took all AM medications, call light placed in reach, bed locked and in lowest position, all needs met at this time
[2019-11-29 16:48] VITALS: BP 131/83
[2019-11-29 20:39] VITALS: BP 133/75
[2019-11-30] MEDS: HYDROCODONE/APAP 10-325 MG TABLET PO PRN ×6 (00:37→21:30)
[2019-11-30] MEDS: ALBUTEROL SULFATE 2.5 MG/ 0.5 ML NEBU NEB SCH ×6 (03:30→23:30)
[2019-11-30] MEDS: IPRATROPIUM BROMIDE 0.5 MG/2.5 ML NEBU NEB SCH ×7 (03:30→23:30)
[2019-11-30 05:42] VITALS: BP 151/78
[2019-11-30] MEDS: LEVOTHYROXINE SODIUM 75 MCG TABLET PO SCH (06:17)
[2019-11-30] MEDS: VENLAFAXINE XR 37.5 MG CAP.SR.24H PO SCH ×2 (09:09→17:37)
[2019-11-30] MEDS: CLONAZEPAM 1 MG TABLET PO PRN ×2 (09:09→15:07)
[2019-11-30] MEDS: GUAIFENESIN LA 600 MG TABLET.SA PO SCH ×2 (09:09→20:24)
[2019-11-30] MEDS: methylPREDNISolone SOD SUCC 40 MG/ML VIAL IV SCH ×2 (09:09→20:24)
[2019-11-30] MEDS: ASPIRIN 81 MG TAB.CHEW PO SCH (09:09)
[2019-11-30 09:56] VITALS: BP 117/75
--- NOTE | 2019-11-30 10:49 | NUR ---
Patient noted resting in bed with eyes closed, complaints of pain, prn [place] given, requested Klonopin, no signs of distress noted, took all AM medications, call light placed in reach, bed locked and in lowest position, all needs met at this time
[2019-11-30 16:50] VITALS: BP 122/76
--- NOTE | 2019-11-30 19:20 | NUR ---
Received patient lying in bed. AAOX4. In no acute distress. Denies any pain or SOB at this time. O2 sat at 93% on RA. IV site on left FA intact and patent. Needs assessed and attended to. Safety measure initiated and call torrez within reached.
[2019-11-30 20:10] VITALS: BP 126/67
[2019-12-01] MEDS: ALBUTEROL SULFATE 2.5 MG/ 0.5 ML NEBU NEB SCH ×6 (02:55→23:30)
[2019-12-01] MEDS: IPRATROPIUM BROMIDE 0.5 MG/2.5 ML NEBU NEB SCH ×6 (02:55→23:30)
[2019-12-01] MEDS: HYDROCODONE/APAP 10-325 MG TABLET PO PRN ×5 (03:22→23:32)
[2019-12-01 05:18] VITALS: BP 142/86
--- NOTE | 2019-12-01 05:28 | NUR ---
Patient slept well last night. [place] PRN given for complain of pain and effective. In no acute distress. Needs attended to and met. Safety measure maintained and call torrez within reached.
[2019-12-01] MEDS: LEVOTHYROXINE SODIUM 75 MCG TABLET PO SCH (06:02)
[2019-12-01 07:40] VITALS: BP 120/75
--- NOTE | 2019-12-01 07:59 | NUR ---
Patient noted resting at this time in bed with eyes closed, complaints of pain, PRN [place] given for pain 07/29, no signs of distress, patient request PRN Klonopin for anxiety, call light in reach, bed locked and in lowest position noted
[2019-12-01] MEDS: GUAIFENESIN LA 600 MG TABLET.SA PO SCH ×2 (08:36→20:13)
[2019-12-01] MEDS: VENLAFAXINE XR 37.5 MG CAP.SR.24H PO SCH ×2 (08:36→17:52)
[2019-12-01] MEDS: ASPIRIN 81 MG TAB.CHEW PO SCH (08:36)
[2019-12-01] MEDS: methylPREDNISolone SOD SUCC 40 MG/ML VIAL IV SCH ×2 (08:36→20:15)
[2019-12-01] MEDS: CLONAZEPAM 1 MG TABLET PO PRN ×2 (08:44→17:52)
[2019-12-01] MEDS: diphenhydrAMINE 25 MG CAP PO PRN (14:43)
[2019-12-01 14:56] VITALS: BP 134/89
--- NOTE | 2019-12-01 19:20 | NUR ---
Received patient lying in bed. AAOX4. In no acute distress. Denies any pain or SOB at this time. IV site on left FA noted to be dislodge. Started new IV line on left AC #22G.. Needs assessed and attended to. Safety measure initiated and call torrez within reached.
[2019-12-01 20:31] VITALS: BP 118/74
[2019-12-02] MEDS: IPRATROPIUM BROMIDE 0.5 MG/2.5 ML NEBU NEB SCH ×6 (03:30→23:30)
[2019-12-02] MEDS: ALBUTEROL SULFATE 2.5 MG/ 0.5 ML NEBU NEB SCH ×6 (03:30→23:30)
[2019-12-02] MEDS: HYDROCODONE/APAP 10-325 MG TABLET PO PRN ×4 (03:42→17:51)
[2019-12-02 03:59] VITALS: BP 122/74
--- NOTE | 2019-12-02 05:31 | NUR ---
Patient remains AOx4. In no acute distress. [place] given for complain of pain and effective. IV site on left AC remains intact and patent. Safety measure maintained and call torrez within reach.
[2019-12-02] MEDS: LEVOTHYROXINE SODIUM 75 MCG TABLET PO SCH (06:08)
[2019-12-02 07:55] VITALS: BP 128/90
[2019-12-02] MEDS: ASPIRIN 81 MG TAB.CHEW PO SCH (08:16)
[2019-12-02] MEDS: GUAIFENESIN LA 600 MG TABLET.SA PO SCH ×2 (08:16→21:33)
[2019-12-02] MEDS: VENLAFAXINE XR 37.5 MG CAP.SR.24H PO SCH ×2 (08:16→16:34)
[2019-12-02] MEDS: methylPREDNISolone SOD SUCC 40 MG/ML VIAL IV SCH (08:51)
[2019-12-02] MEDS: CLONAZEPAM 1 MG TABLET PO PRN ×2 (13:25→21:33)
[2019-12-02 15:58] VITALS: BP 121/84
--- NOTE | 2019-12-02 18:26 | NUR ---
PATIENT CONTINUE THERAPY FOR AMBULATION. TOLERATED WELL. CONTINUE PAIN MANAGEMENT WITH GOOD EFFECT. DISCONTINUE SOLU MEDROL CHANGE TO PREDNISONE 10MG DAILY. NOT IN DISTRESS. CONTINUE ANTI ANXIETY KLONOPIN PRN WITH GOOD EFFECT. WILL CONTINUE MONITOR
[2019-12-02 21:25] VITALS: BP 111/67
[2019-12-03] MEDS: HYDROCODONE/APAP 10-325 MG TABLET PO PRN ×6 (00:33→23:08)
[2019-12-03] MEDS: ALBUTEROL SULFATE 2.5 MG/ 0.5 ML NEBU NEB SCH ×7 (03:30→22:30)
[2019-12-03] MEDS: IPRATROPIUM BROMIDE 0.5 MG/2.5 ML NEBU NEB SCH ×7 (03:30→22:30)
[2019-12-03] MEDS: LEVOTHYROXINE SODIUM 75 MCG TABLET PO SCH (06:01)
[2019-12-03 06:10] VITALS: BP 125/75
[2019-12-03] MEDS: BISACODYL 5 MG TABLET.DR PO PRN (06:11)
--- NOTE | 2019-12-03 06:25 | NUR ---
C/o generalized pain. [place] was given as ordered. Pt also given klonopin as requested/ ordered. On BRP with supervision. Bed alarm on at all time. Pt given with dulcolax PO, last BM was last Sunday per pt.
[2019-12-03 08:00] VITALS: BP 126/82
[2019-12-03] MEDS: ASPIRIN 81 MG TAB.CHEW PO SCH (08:12)
[2019-12-03] MEDS: CLONAZEPAM 1 MG TABLET PO PRN ×2 (08:12→16:46)
[2019-12-03] MEDS: predniSONE 20 MG TABLET PO SCH (08:13)
[2019-12-03] MEDS: GUAIFENESIN LA 600 MG TABLET.SA PO SCH ×2 (08:13→20:59)
[2019-12-03] MEDS: VENLAFAXINE XR 37.5 MG CAP.SR.24H PO SCH ×2 (08:13→16:46)
[2019-12-03] MEDS: diphenhydrAMINE 25 MG CAP PO PRN ×2 (08:14→16:46)
--- NOTE | 2019-12-03 13:50 | NUR ---
PATIENT ALERT, ORIENTED X4, NO SOB,RESP EVEN NONLABORED,SKIN WARM AND DRY TO TOUCH, ANXIETY MANAGED WITH REASSURANCE AND MEDICATION KLONOPIN, PAIN IS MANAGED WITH PAIN MEDICATION, DISTRACTION, REPOSITIONING, NO DISTRESS NOTED, NEEDS ATTENDED TIMELY.
[2019-12-03] MEDS: ONDANSETRON HCL 4 MG TABLET PO PRN (15:39)
--- NOTE | 2019-12-03 15:49 | NUR ---
patient noted with anxious mood about going home on Sunday. spoke to patient in detail, encouraged to express feelings, reassured. patient felt nauseous, zofran administered as ordered. continue to monitor for effectiveness.
[2019-12-03 16:53] VITALS: BP 131/94
--- NOTE | 2019-12-03 18:36 | NUR ---
DR RUANO ORDERED PSYCH EVAL FOR MANAGEMENT OF MEDS FOR ANXIETY AND REGLAN FOR NAUSEA.
[2019-12-03] MEDS ORDERED: METOCLOPRAMIDE HCL 10 MG TABLET PO PRN (18:45)
--- NOTE | 2019-12-03 18:45 | NUR ---
MADE AWARE DR KYLE FOR PSYCH EVAL FOR TOMORROW.
--- NOTE | 2019-12-03 19:15 | NUR ---
Patient received in bed, sleeping and resting well. No signs of SOB or acute distress in room air. Breathing is even and unlabored. Semi fowlers position and bed alarm is on. Neuro check will be done as ordered due to s/p fall three days ago. No noted changes in LOC, and in functional capabilities . No signs of pain at this time, PRN pain medication was just administered by outgoing nurse a few minutes ago. Breathing treatments on going routinely, and patient is tolerating well. Noted improvement of cough. Fall and safety precautions maintained. Call light kept within reach. Allowed patient to rest for now. Will continue to monitor.
[2019-12-03 20:13] VITALS: BP 125/69
[2019-12-04] MEDS: IPRATROPIUM BROMIDE 0.5 MG/2.5 ML NEBU NEB SCH ×6 (02:30→23:30)
[2019-12-04] MEDS: ALBUTEROL SULFATE 2.5 MG/ 0.5 ML NEBU NEB SCH ×6 (02:30→23:30)
[2019-12-04] MEDS: HYDROCODONE/APAP 10-325 MG TABLET PO PRN ×5 (03:46→21:31)
[2019-12-04 05:54] VITALS: BP 129/79
[2019-12-04] MEDS: LEVOTHYROXINE SODIUM 75 MCG TABLET PO SCH (06:03)
--- NOTE | 2019-12-04 06:23 | NUR ---
Patient slept well through the night. No respiratory symptoms noted. Marked improvement in coughing. Woke up x 2 for pain medications and appears to be effective for four hours. Refused x1 routine breathing tx because patient wanted to rest. Assisted to bathroom x 1 around 0400, gait is stable but explained that standby assistance is needed due to pain medications administered to patient. She verbalized understanding. Patient did not verbalize any emotional distress, and verbalizes feeling of safety within the facility. No anxiety noted throughout shift. Kept on RA with no complications. Will continue to monitor and endorse accordingly.
[2019-12-04] MEDS: CLONAZEPAM 1 MG TABLET PO PRN ×2 (07:28→16:10)
[2019-12-04 08:00] VITALS: BP 135/75
[2019-12-04] MEDS: predniSONE 20 MG TABLET PO SCH (08:44)
[2019-12-04] MEDS: GUAIFENESIN LA 600 MG TABLET.SA PO SCH ×2 (08:44→21:30)
[2019-12-04] MEDS: ASPIRIN 81 MG TAB.CHEW PO SCH (08:44)
[2019-12-04] MEDS: VENLAFAXINE XR 37.5 MG CAP.SR.24H PO SCH ×2 (08:44→16:10)
--- NOTE | 2019-12-04 13:27 | NUR ---
PATIENT HAS NO BM FOR 3 DAYS, OFFERED PATIENT FOR STOOL SOFTENER, OR LAXATIVE, PATIENT STATED SHE IS GOING HOME TOMORROW SHE HAS SOMETHING TO TAKE FOR CONSTIPATION, PATIENT STATED SHE DOES NOT WANT TO TAKE ANY MEDICATION FOR CONSTIPATION FOR NOW,
--- NOTE | 2019-12-04 15:04 | NUR ---
Social Work Note: plant maintenance worker received a phone call from Shi ([phone]) and stated that she is from [facility]. She stated that this patient is homeless and need proper discharge planning. She stated that upon patient being discharged she would like to receive a phone call to where she is at.
[2019-12-04] MEDS: BISACODYL 5 MG TABLET.DR PO PRN (16:10)
[2019-12-04 17:01] VITALS: BP 112/66
--- NOTE | 2019-12-04 18:29 | NUR ---
PATIENT IS ALERT, ORIENTED X4, VERBALLY RESPONSIVE, NO SOB, NO DISTRESS, VERBALIZES FEELING ANXIOUS, MANAGED WITH MEDICATION, REASSURED, CONCERNS ADDRESSED PROPERLY. SPOKE TO DR KYLE, COMING TONIGHT TO ASSESS PATIENT FOR BETTER MANAGEMENT OF ANXIETY. PAIN IS MANAGED WITH PAIN MEDS, DISTRACTION. NEEDS ATTENDED TIMELY.
--- NOTE | 2019-12-04 19:28 | NUR ---
Patient received in bed, sleeping and resting well. Easily arousable. No signs of SOB or acute distress in room air. Breathing is even and unlabored. Semi fowlers position and bed alarm is on. Neuro check will be done as ordered due to s/p fall four days ago. No noted changes in LOC, and in functional capabilities . No signs of pain at this time, PRN pain medication will be due at bedtime. Breathing treatments on going routinely, and patient is tolerating well. No coughing noted. Fall and safety precautions maintained. Call light kept within reach. Allowed patient to rest for now. Will continue to monitor.
[2019-12-04 20:42] VITALS: BP 115/61
[2019-12-05] MEDS ORDERED: LORAZEPAM 0.5 MG TABLET PO PRN (00:15)
--- NOTE | 2019-12-05 01:00 | NUR ---
Patient verbalized increased anxiety and inability to sleep. Jaycob Gonzales HOURLY SHIFT made aware. Received orders for Ativan x 1, noted and carried out.
[2019-12-05] MEDS: HYDROCODONE/APAP 10-325 MG TABLET PO PRN ×3 (01:41→09:47)
[2019-12-05] MEDS: IPRATROPIUM BROMIDE 0.5 MG/2.5 ML NEBU NEB SCH ×4 (02:54→15:30)
[2019-12-05] MEDS: ALBUTEROL SULFATE 2.5 MG/ 0.5 ML NEBU NEB SCH ×4 (02:54→15:30)
--- NOTE | 2019-12-05 05:30 | NUR ---
Patient verbalized ability to sleep for about 4 hours after administration of Ativan 0.5mg PO x 1 dose, as well as [place] 10/325mg around 0130. Assisted to the bathroom at this time. Fall and safety precautions maintained. Will continue to monitor.
[2019-12-05 05:38] VITALS: BP 131/75
[2019-12-05] MEDS: LEVOTHYROXINE SODIUM 75 MCG TABLET PO SCH (05:46)
[2019-12-05 07:54] VITALS: BP 148/89
[2019-12-05] MEDS: ASPIRIN 81 MG TAB.CHEW PO SCH (08:08)
[2019-12-05] MEDS: predniSONE 20 MG TABLET PO SCH (08:08)
[2019-12-05] MEDS: GUAIFENESIN LA 600 MG TABLET.SA PO SCH (08:08)
[2019-12-05] MEDS: VENLAFAXINE XR 37.5 MG CAP.SR.24H PO SCH (08:08)
[2019-12-05] MEDS: CLONAZEPAM 1 MG TABLET PO PRN ×2 (08:09→13:00)
--- NOTE | 2019-12-05 09:00 | NUR ---
Patient is alert, oriented x 4, not in any form of distress, on room air. Due medications administered and tolerated well.Patient informed of planned discharge for the day and patient is agreeable. Assisted with her needs. Call light and frequently used items placed within reach.
--- NOTE | 2019-12-05 09:10 | NUR ---
Offered patient PRN medication for no BM but patient refused. Explained risks and benefits but patient still refused medication. Patient made aware of psych consult but patient refused to wait for MD to come see patient, and wants to go home. Advised patient to follow up with psychiatrist and PCP with verbalized understanding.
--- NOTE | 2019-12-05 13:20 | NUR ---
Patient seen by Dr. Mora and gave discharge prescription.
--- NOTE | 2019-12-05 13:45 | NUR ---
Discharge instructions provided to the patient with verbalized understanding. Discharge papers singed by and given to the patient. All belongings well accounted for and brought home with the patient. Patient remains alert, oriented x 4, not in any distress. No complain of any pain or discomfort at this time. Vital signs stable. Discharge medication list and prescriptions faxed to preferred pharmacy. Patient assisted to the parking lot by PT. Patient picked up by healthcare facility administrator Martha Boles.
[2019-12-06] MEDS ORDERED: predniSONE 10 MG TABLET PO SCH (09:00)
== END 2019-12-05 13:45 | disposition home health service (06) | DRG 202 ==
PROVIDERS: ADMIT Physical Medicine & Rehabilitation Pain Medicine; ATTEND Physical Medicine & Rehabilitation Pain Medicine
DX: J45.901 Unspecified asthma with (acute) exacerbation (principal); J96.01 Acute respiratory failure with hypoxia; R53.1 Weakness; E03.9 Hypothyroidism, unspecified; F32.9 Major depressive disorder, single episode, unspecified; F41.1 Generalized anxiety disorder; G89.29 Other chronic pain; Z91.5 Personal history of self-harm; R53.81 Other malaise; M54.9 Dorsalgia, unspecified; Z91.410 Personal history of adult physical and sexual abuse
CPT/HCPCS: 94640; J2920; J3590; J7512; Q0162; Q0163

== ENCOUNTER 2020-01-13 10:21 | Emergency (ER) | payer MEDICARE, OTHER ==
[~2020-01-13] VITALS: Ht 149.9 cm; Wt 61.2 kg
--- NOTE | 2020-01-13 10:47 | NUR ---
patient brought to the room waiting to be seen by ER physician
--- NOTE | 2020-01-13 10:57 | NUR ---
DOCTOR PAMELA IN THE ROOM TO EVALUATE PATIENT
[2020-01-13] MEDS ORDERED: ALBUTEROL SULFATE 2.5 MG/3 ML NEBU NEB ONE ×2 (11:00→12:15)
[2020-01-13] MEDS ORDERED: IPRATROPIUM BROMIDE 0.5 MG/2.5 ML NEBU NEB ONE (11:00)
[2020-01-13] MEDS ORDERED: predniSONE 10 MG TABLET PO ONE (11:00)
[2020-01-13] MEDS ORDERED: predniSONE 20 MG TABLET ONE (11:15)
[2020-01-13] MEDS ORDERED: ALBUTEROL SULFATE 2.5 MG/3 ML NEBU ONE ×2 (11:37→12:20)
[2020-01-13] MEDS ORDERED: IPRATROPIUM BROMIDE 0.5 MG/2.5 ML NEBU ONE (11:37)
--- NOTE | 2020-01-13 11:39 | NUR ---
PATIENT ASKING FOR PAIN MEDICATION
[2020-01-13] MEDS ORDERED: HYDROCODONE/APAP 5-325MG TABLET PO ONE (11:45)
[2020-01-13] MEDS ORDERED: HYDROCODONE/APAP 5-325MG TABLET ONE (11:49)
--- NOTE | 2020-01-13 13:15 | NUR ---
PATIENT RECIEVED SECOND BREATHING TREATMENT AND GIVEN DISCHARGE INSTRUCTION AND PRESCRIPTIONS. PATIENT VERBALIZES UNDERSTANDING.
== END 2020-01-13 13:15 | disposition home or self-care (01) ==
LOC: ER 10:21
DX: J20.9 Acute bronchitis, unspecified (principal); F41.9 Anxiety disorder, unspecified; G43.909 Migraine, unspecified, not intractable, without status migrainosus; Z60.2 Problems related to living alone; Z79.899 Other long term (current) drug therapy
CPT/HCPCS: 71045; 93308; 94640 ×2; 99284; J7512; A4663; J3590